=== PATIENT | female | born 1975 ===

== ENCOUNTER 2020-10-28 06:15 | Day surgery (SDC) | payer OTHER ==
[2020-10-28] MEDS ORDERED: PERCOCET 5-3251 EACH PO (09:51)
[2020-10-28] MEDS ORDERED: RECTICARE30 GM TOP (09:52)
[2020-10-28] MEDS ORDERED: DERMOPLAST PAIN78 GM TOP (09:52)
== END 2020-10-28 14:45 | disposition home or self-care (01) ==
LOC: CIR.AMB 06:15
PROVIDERS: ATTEND Surgery
DX: K60.3 Anal fistula (principal); Z20.822 Contact with and (suspected) exposure to COVID-19

== ENCOUNTER 2021-01-13 07:30 | Day surgery (SDC) | payer OTHER ==
[~2021-01-13 07:30] MED LIST: DERMOPLAST PAIN78 GM TOP; PERCOCET 5-3251 EACH PO; RECTICARE30 GM TOP
[2021-01-13] MEDS ORDERED: PERCOCET 5-3251 EACH PO (10:11)
[2021-01-13] MEDS ORDERED: RECTICARE30 GM TOP (10:11)
[2021-01-13] MEDS ORDERED: METRONIDAZOLE500 MG PO (10:12)
== END 2021-01-13 15:50 | disposition home or self-care (01) ==
LOC: CIR.AMB 07:30
PROVIDERS: ATTEND Surgery
DX: K60.3 Anal fistula (principal); Z20.822 Contact with and (suspected) exposure to COVID-19